=== PATIENT | female | born 1955 | race Hispanic/Latino ===

== ENCOUNTER 2021-02-26 19:27 | Inpatient (IN) | payer MEDICARE, OTHER ==
[~2021-02-26] VITALS: Ht 154.9 cm; Wt 62.6 kg
[2021-02-26 19:40] VITALS: BP 139/68
[2021-02-26 19:42] VITALS: BP 151/69
[2021-02-26] MEDS ORDERED: 0.9%NACL 1000ML 1,000 ML IV ONE (20:00)
[2021-02-26] MEDS ORDERED: ACETAMINOPHEN 325 MG TAB PO ONE (20:00)
[2021-02-26] MEDS ORDERED: ONDANSETRON 4MG INJ IVP ONE (20:00)
[2021-02-26 20:07] LABS: BASOPHILS % (AUTO) 0.4 % (0.0-5.0); HEMATOCRIT 37.3 % (36-48); LYMPHOCYTES % (AUTO) 31.3 % (21.0-51.0); MEAN CORPUSCULAR HEMOGLOBIN 27.3 pg (27.0-33.0); MEAN CORPUSCULAR HGB CONC 31.4 g/dL (32.0-36.0); MEAN CORPUSCULAR VOLUME 86.9 fL (79-99); MONOCYTES % (AUTO) 8.1 % (3.0-13.0); NEUTROPHILS % (AUTO) 59.8 % (40.0-77.0); PLATELET COUNT (AUTO) 194 K/uL (130-400); RED BLOOD CELL COUNT(AUTO) 4.29 MIL/uL (4.00-5.50); RED CELL DISTRIBUTION WIDTH 13.1 % (11.0-15.5); WHITE BLOOD COUNT (AUTO) 2.6 K/uL (4.8-10.8)
[2021-02-26 20:26] LABS: CREATININE 0.8 mg/dL (0.5-1.5); POTASSIUM 3.4 mmol/L (3.5-5.1)
[2021-02-26 20:30] LABS: ALBUMIN 2.9 g/dL (3.5-5.0); BILIRUBIN,TOTAL 0.2 mg/dL (0.2-1.0); TOTAL PROTEIN, SERUM 6.4 g/dL (6.0-8.3)
[2021-02-26 20:47] LABS: BAND NEUTROPHILS % (MANUAL) 12 % (0-2); EOSINOPHILS % (MANUAL) 1 % (1-6); LYMPHOCYTES % (MANUAL) 19 % (22-44); MAN.DIFF COMMENT-IMPRESSION MANUAL DIFFERENTIAL; MONOCYTES % (MANUAL) 11 % (2-9); REACTIVE LYMPHOCYTES 6 % (0-0); SEGMENTED NEUTROPHILS % 51 % (40-70)
[2021-02-26] MEDS ORDERED: ASPIRIN 325MG EC TAB PO ONE (21:00)
[2021-02-26] MEDS ORDERED: AZITHROMYCIN 250 MG TABLET PO ONE (21:00)
[2021-02-26] MEDS ORDERED: DEXAMETHASONE SOD PHOSPHATE 4 MG/ML 1ML VIAL IVP STA (21:46)
[2021-02-26] MEDS ORDERED: LORAZEPAM 2 MG/ML 1 ML VIAL IVP ONE (22:00)
[2021-02-27] VITALS (9 sets, daily range): BP systolic 119–155; BP diastolic 63–81
[2021-02-27] MEDS: ONDANSETRON 4MG INJ IVP PRN ×3 (01:07→14:26)
[2021-02-27] MEDS: HYDROMORPHONE 0.5 MG SYG (0.5MG/0.5ML) IVP PRN ×4 (01:07→22:05)
[2021-02-27] MEDS ORDERED: LACTULOSE 20 GM/30 ML UDCUP PO PRN (03:30)
[2021-02-27] MEDS ORDERED: ACETAMINOPHEN 325 MG TAB PO PRN ×2 (03:30)
[2021-02-27] MEDS ORDERED: 0.9% NACL 250ML IVPB SCH (03:30)
[2021-02-27] MEDS ORDERED: ZOLPIDEM TARTRATE 5 MG TAB PO PRN (03:30)
[2021-02-27] MEDS ORDERED: CEFTRIAXONE 500MG VIAL IV SCH (03:30)
[2021-02-27] MEDS ORDERED: NITROGLYCERIN 0.4 MG SL TAB SL PRN (03:30)
[2021-02-27] MEDS ORDERED: POTASSIUM CHLORIDE 10% ELIXIR 20 MEQ/15 ML UDCUP PO PRN (03:30)
[2021-02-27] MEDS ORDERED: DEXTROSE 50%-WATER 50 ML DISP.SYRIN IV PRN (03:30)
[2021-02-27] MEDS ORDERED: GLUCAGON 1MG KIT 1 MG ML IM PRN (03:30)
[2021-02-27] MEDS ORDERED: POTASSIUM CHLORIDE 20MEQ/100ML 100 ML IV PRN (03:30)
[2021-02-27] MEDS: SOLU-MEDROL 125MG VIAL IV SCH ×2 (03:36→15:06)
[2021-02-27] MEDS: GUAIFENESIN-DM 200/20 MG 10 ML PO SCH ×4 (03:37→20:57)
[2021-02-27] MEDS ORDERED: HYDRALAZINE 20MG/ML VIAL IV PRN (04:00)
[2021-02-27 04:29] LABS: HEMATOCRIT 36.5 % (36-48); MEAN CORPUSCULAR HEMOGLOBIN 26.8 pg (27.0-33.0); MEAN CORPUSCULAR HGB CONC 31.2 g/dL (32.0-36.0); MEAN CORPUSCULAR VOLUME 85.7 fL (79-99); PLATELET COUNT (AUTO) 186 K/uL (130-400); RED BLOOD CELL COUNT(AUTO) 4.26 MIL/uL (4.00-5.50); RED CELL DISTRIBUTION WIDTH 12.9 % (11.0-15.5); WHITE BLOOD COUNT (AUTO) 1.7 K/uL (4.8-10.8)
[2021-02-27 04:43] LABS: ALBUMIN 2.8 g/dL (3.5-5.0); BILIRUBIN,DIRECT 0.1 mg/dL (0.0-0.3); BILIRUBIN,TOTAL 0.2 mg/dL (0.2-1.0); CREATININE 0.7 mg/dL (0.5-1.5); POTASSIUM 3.8 mmol/L (3.5-5.1); TOTAL PROTEIN, SERUM 6.5 g/dL (6.0-8.3)
[2021-02-27 04:47] LABS: B-TYPE NATRIURETIC PEPTIDE 58 pg/mL (0-100)
[2021-02-27 05:01] LABS: BAND NEUTROPHILS % (MANUAL) 4 % (0-2); BASOPHILS % (MANUAL) 2 % (0-2); EOSINOPHILS % (MANUAL) 1 % (1-6); LYMPHOCYTES % (MANUAL) 18 % (22-44); MAN.DIFF COMMENT-IMPRESSION MANUAL DIFFERENTIAL; SEGMENTED NEUTROPHILS % 75 % (40-70)
[2021-02-27 05:02] LABS: PLATELET MORPHOLOGY COMMENT ADEQUATE
[2021-02-27] MEDS: KETOROLAC 15MG/ML VIAL (15MG/ML) IM PRN ×2 (05:50→19:18)
[2021-02-27] MEDS ORDERED: IPRATROPIUM/ALBUTEROL SULFATE 3 ML SOLUTION IH SCH (06:00)
[2021-02-27] MEDS: INSULIN HUMULIN R 100 UNIT/ML 3ML SQ SCH ×4 (07:30→20:57)
[2021-02-27] MEDS ORDERED: ALBUTEROL INHALER 90MCG/INH IH ONE (07:40)
[2021-02-27] MEDS ORDERED: 0.9%NACL 100ML 100 ML ONE (08:13)
[2021-02-27] MEDS: CEFTRIAXONE 1G VIAL IV SCH (08:20)
[2021-02-27] MEDS: ENOXAPARIN SODIUM 40 MG/0.4 ML SYRINGE SQ SCH (10:41)
[2021-02-27] MEDS: CETIRIZINE HCL 5 MG TABLET PO SCH (10:41)
[2021-02-27] MEDS ORDERED: CEPH500T PO (11:09)
[2021-02-27] MEDS ORDERED: OMEP20TA2 PO (11:11)
[2021-02-27] MEDS ORDERED: ACET-2247 PO (11:11)
[2021-02-27] MEDS ORDERED: PANTOPRAZOLE 40 MG/VIAL IVP SCH (11:30)
[2021-02-27] MEDS: SUCRALFATE 1 GM TABLET PO SCH ×3 (11:30→20:57)
[2021-02-27] MEDS: ALBUTEROL INHALER 90MCG/INH IH SCH ×2 (14:30→18:10)
[2021-02-27] MEDS: AZITHROMYCIN 500MG+NS 250ML 250 ML IV SCH (19:18)
[2021-02-27] MEDS ORDERED: AZITHROMYCIN 500MG VIAL IVPB SCH (20:00)
[2021-02-27] MEDS: PANTOPRAZOLE 40 MG/VIAL IVP SCH (20:58)
[2021-02-28] VITALS (28 sets, daily range): BP systolic 97–159; BP diastolic 47–85
[2021-02-28] MEDS: ALBUTEROL INHALER 90MCG/INH IH SCH ×4 (00:14→17:02)
[2021-02-28] MEDS ORDERED: KETOROLAC 15MG/ML VIAL (15MG/ML) ONE (00:21)
[2021-02-28] MEDS: GUAIFENESIN-DM 200/20 MG 10 ML PO SCH ×4 (02:43→20:15)
[2021-02-28] MEDS: HYDROMORPHONE 0.5 MG SYG (0.5MG/0.5ML) IVP PRN (03:03)
[2021-02-28] MEDS: MAG/ALUM/SIMETH 30 ML UDCUP PO PRN ×2 (03:03→21:45)
[2021-02-28] MEDS: CEFTRIAXONE 1G VIAL IV SCH (06:12)
[2021-02-28] MEDS: SUCRALFATE 1 GM TABLET PO SCH ×4 (06:12→20:15)
[2021-02-28] MEDS: ONDANSETRON 4MG INJ IVP PRN (06:22)
[2021-02-28] MEDS: INSULIN HUMULIN R 100 UNIT/ML 3ML SQ SCH ×4 (06:25→20:36)
[2021-02-28] MEDS: KETOROLAC 15MG/ML VIAL (15MG/ML) IV PRN ×2 (07:19→14:49)
[2021-02-28 08:28] LABS: HEMATOCRIT 34.8 % (36-48); MEAN CORPUSCULAR HEMOGLOBIN 26.3 pg (27.0-33.0); MEAN CORPUSCULAR HGB CONC 31.3 g/dL (32.0-36.0); MEAN CORPUSCULAR VOLUME 83.9 fL (79-99); RED BLOOD CELL COUNT(AUTO) 4.15 MIL/uL (4.00-5.50); RED CELL DISTRIBUTION WIDTH 12.9 % (11.0-15.5); WHITE BLOOD COUNT (AUTO) 4.8 K/uL (4.8-10.8)
[2021-02-28] MEDS: DEXAMETHASONE 4 MG TAB PO SCH (08:53)
[2021-02-28] MEDS: ENOXAPARIN SODIUM 40 MG/0.4 ML SYRINGE SQ SCH (08:54)
[2021-02-28] MEDS: CETIRIZINE HCL 5 MG TABLET PO SCH (08:54)
[2021-02-28] MEDS: PANTOPRAZOLE 40 MG/VIAL IVP SCH ×2 (08:54→20:15)
[2021-02-28] MEDS ORDERED: TRAMADOL /APAP 37.5MG/325MG TAB PO PRN (16:00)
[2021-02-28] MEDS ORDERED: 0.9% NACL 250ML 250 ML ONE (19:46)
[2021-02-28] MEDS: AZITHROMYCIN 500MG+NS 250ML 250 ML IV SCH (20:15)
[2021-02-28] MEDS: TRAMADOL /APAP 37.5MG/325MG TAB PO PRN (21:46)
[2021-03-01] VITALS (12 sets, daily range): BP systolic 136–179; BP diastolic 64–99
[2021-03-01] MEDS: ALBUTEROL INHALER 90MCG/INH IH SCH ×4 (00:12→18:56)
[2021-03-01] MEDS: GUAIFENESIN-DM 200/20 MG 10 ML PO SCH ×4 (03:10→20:06)
[2021-03-01] MEDS: TRAMADOL /APAP 37.5MG/325MG TAB PO PRN ×3 (03:13→20:08)
[2021-03-01 04:25] LABS: HEMATOCRIT 34.9 % (36-48); MEAN CORPUSCULAR HEMOGLOBIN 26.3 pg (27.0-33.0); MEAN CORPUSCULAR HGB CONC 31.5 g/dL (32.0-36.0); MEAN CORPUSCULAR VOLUME 83.5 fL (79-99); RED BLOOD CELL COUNT(AUTO) 4.18 MIL/uL (4.00-5.50); WHITE BLOOD COUNT (AUTO) 4.1 K/uL (4.8-10.8)
[2021-03-01 04:43] LABS: ALBUMIN 2.9 g/dL (3.5-5.0); BILIRUBIN,TOTAL 0.2 mg/dL (0.2-1.0); CREATININE 0.8 mg/dL (0.5-1.5); POTASSIUM 3.3 mmol/L (3.5-5.1); TOTAL PROTEIN, SERUM 6.3 g/dL (6.0-8.3)
[2021-03-01] MEDS: CEFTRIAXONE 1G VIAL IV SCH (06:30)
[2021-03-01] MEDS: SUCRALFATE 1 GM TABLET PO SCH ×4 (06:30→20:06)
[2021-03-01] MEDS: KCL 20 MEQ ERTAB PO PRN ×3 (06:31→11:06)
[2021-03-01] MEDS: INSULIN HUMULIN R 100 UNIT/ML 3ML SQ SCH ×4 (06:47→19:46)
[2021-03-01] MEDS: ENOXAPARIN SODIUM 40 MG/0.4 ML SYRINGE SQ SCH (08:17)
[2021-03-01] MEDS: DEXAMETHASONE 4 MG TAB PO SCH (08:18)
[2021-03-01] MEDS: CETIRIZINE HCL 5 MG TABLET PO SCH (08:18)
[2021-03-01] MEDS: PANTOPRAZOLE 40 MG/VIAL IVP SCH ×2 (08:18→20:06)
[2021-03-01] MEDS ORDERED: 0.9% NACL 250ML 250 ML ONE (19:51)
[2021-03-01] MEDS: AZITHROMYCIN 500MG+NS 250ML 250 ML IV SCH (20:06)
[2021-03-02] MEDS: ALBUTEROL INHALER 90MCG/INH IH SCH ×3 (00:20→11:20)
[2021-03-02] MEDS: GUAIFENESIN-DM 200/20 MG 10 ML PO SCH ×2 (03:44→08:29)
[2021-03-02] MEDS: TRAMADOL /APAP 37.5MG/325MG TAB PO PRN ×2 (03:46→08:31)
[2021-03-02 04:13] VITALS: BP 162/73
[2021-03-02] MEDS: INSULIN HUMULIN R 100 UNIT/ML 3ML SQ SCH ×2 (04:40→11:30)
[2021-03-02 04:46] LABS: HEMATOCRIT 36.1 % (36-48); LYMPHOCYTES % (AUTO) 19.1 % (21.0-51.0); MEAN CORPUSCULAR HGB CONC 31.3 g/dL (32.0-36.0); MEAN CORPUSCULAR VOLUME 86.2 fL (79-99); MONOCYTES % (AUTO) 7.6 % (3.0-13.0); NEUTROPHILS % (AUTO) 72.9 % (40.0-77.0); PLATELET COUNT (AUTO) 308 K/uL (130-400); RED BLOOD CELL COUNT(AUTO) 4.19 MIL/uL (4.00-5.50); RED CELL DISTRIBUTION WIDTH 13.2 % (11.0-15.5); WHITE BLOOD COUNT (AUTO) 4.9 K/uL (4.8-10.8)
[2021-03-02 05:01] LABS: INR 0.99 (0.85-1.15); PROTHROMBIN TIME 10.8 SEC (9.6-11.6)
[2021-03-02 05:03] LABS: PARTIAL THROMBOPLASTIN TIME 24.7 SEC (26.3-35.5)
[2021-03-02 05:08] LABS: AMYLASE 59 U/L (25-115); CARBON DIOXIDE 27 mmol/L (21-32); CHLORIDE 112 mmol/L (101-111); CREATININE 0.7 mg/dL (0.5-1.5); GLOMERULAR FILTR. RATE CALC 89 mL/min (>60); GLUCOSE,RANDOM 104 mg/dL (70-105); LIPASE 75 U/L (114-286); SODIUM SERUM 145 mmol/L (136-145); UREA NITROGEN, BLOOD 25 mg/dL (7-18)
[2021-03-02] MEDS: CEFTRIAXONE 1G VIAL IV SCH (06:16)
[2021-03-02] MEDS: SUCRALFATE 1 GM TABLET PO SCH ×2 (06:16→11:19)
[2021-03-02 06:42] LABS: CRP QUANTITATIVE < 2.00 mg/L (0.00-9.0)
[2021-03-02 08:03] VITALS: BP 146/66
[2021-03-02] MEDS: ENOXAPARIN SODIUM 40 MG/0.4 ML SYRINGE SQ SCH (08:26)
[2021-03-02] MEDS: CETIRIZINE HCL 5 MG TABLET PO SCH (08:26)
[2021-03-02] MEDS: DEXAMETHASONE 4 MG TAB PO SCH (08:26)
[2021-03-02] MEDS: PANTOPRAZOLE 40 MG/VIAL IVP SCH (08:29)
[2021-03-02 12:01] VITALS: BP 166/79
== END 2021-03-02 15:22 | disposition home health service (06) | DRG 177 ==
LOC: EDH 19:38 → OBSVTOIN 21:46 → EDHIP 21:46 → 2BH 02-27 09:39
PROVIDERS: ADMIT Internal Medicine Critical Care Medicine; ATTEND Internal Medicine Critical Care Medicine
DX: U07.1 COVID-19 (principal); J96.01 Acute respiratory failure with hypoxia; J12.82 Pneumonia due to coronavirus disease 2019; K56.0 Paralytic ileus; K80.20 Calculus of gallbladder without cholecystitis without obstruction; J45.909 Unspecified asthma, uncomplicated; I25.2 Old myocardial infarction; Z86.73 Personal history of transient ischemic attack (TIA), and cerebral infarction without residual deficits
CPT/HCPCS: 36415; 71045; 71250; 74176; 76700; 80048; 80053; 80076; 82150; 82948; 83690; 83880; 84484; 85025; 85027; 85378; 85610; 85730; 86140; 86677; 87338; 87493; 93005; 94664; C9113; G0378; J0456; J0696; J1100; J1170; J1650; J1885; J2060; J2405; J2930; J7030; J7050; J8540

== ENCOUNTER 2024-06-13 21:47 | Emergency (ER) | payer MEDICARE, OTHER ==
[~2024-06-13] VITALS: Ht 152.4 cm; Wt 61.2 kg
[~2024-06-13 21:47] MED LIST: ACET-2247 PO; OMEP20TA2 PO
[2024-06-13] MEDS ORDERED: IVER3 PO (22:09)
[2024-06-13] MEDS: Solu-medROL 125MG VIAL IVP ONE (22:26)
[2024-06-13] MEDS: FAMOTIDINE 20MG VIAL IV ONE (22:26)
[2024-06-13 22:36] VITALS: BP 138/88; PULSE 66; RESP 20; TEMP 98.6; O2SAT 100
== END 2024-06-13 22:59 ==
LOC: EDH 21:47
DX: B86 Scabies (principal); J45.909 Unspecified asthma, uncomplicated; I25.2 Old myocardial infarction; Z96.653 Presence of artificial knee joint, bilateral; Z87.442 Personal history of urinary calculi; Z79.899 Other long term (current) drug therapy
CPT/HCPCS: 99283; 96374; 96375; J3490; J2919